=== PATIENT | male | born 1985 | race Caucasian/White ===

== ENCOUNTER 2021-12-28 19:23 | Emergency (ER) | payer OTHER ==
[~2021-12-28] VITALS: Ht 182.9 cm; Wt 68.0 kg
[~2021-12-28 19:23] MED LIST: NAPROSYN375 MG PO
[2021-12-28 20:05] LABS: ABSOLUTE EOSINOPHILS 0.1 thou/uL (0.0-0.7); ABSOLUTE LYMPHOCYTES 1.2 thou/uL (0.8-5.3); ABSOLUTE MONOCYTES 0.6 thou/uL (0.0-1.2); ABSOLUTE NEUTROPHILS 5.9 thou/uL (1.6-8.1); BASOPHILS 0.5 %; EOSINOPHILS 0.8 %; HEMATOCRIT 42.7 % (42.0-52.0); HEMOGLOBIN 14.6 gm/dL (14.0-18.0); LYMPHOCYTES 15.6 %; MCH 29.4 pg (26.0-34.0); MCHC 34.2 g/dL (28.0-37.0); MONOCYTES 7.4 %; MPV 7.7 fl. (7.2-11.1); NUCLEATED RBCS 0 /100WBC; PLATELET COUNT* 254 thou/uL (150-400); POLYS 75.7 %; RBC 4.97 mil/uL (4.50-6.00); WBC 7.8 thou/uL (4.0-11.0)
[2021-12-28 20:17] LABS: CALCIUM 8.3 mg/dL (8.5-10.1); CREATININE 1.1 mg/dL (0.6-1.3); POTASSIUM 3.8 mmol/L (3.5-5.1)
[2021-12-28 20:28] LABS: ALBUMIN 3.6 g/dL (3.4-5.0); TOTAL BILIRUBIN 0.5 mg/dL (<0.1-1.0); TOTAL PROTEIN 6.5 g/dL (6.4-8.2)
[2021-12-28 21:20] LABS: URINE BILIRUBIN NEGATIVE (Negative); URINE BLOOD NEGATIVE (Negative); URINE CLARITY CLEAR; URINE COLOR YELLOW; URINE GLUCOSE-RANDOM NEGATIVE (Negative); URINE KETONES NEGATIVE (Negative); URINE LEUKOCYTES-REFLEX NEGATIVE (Negative); URINE NITRITE-REFLEX NEGATIVE (Negative); URINE PROTEIN NEGATIVE (Negative); URINE SPECIFIC GRAVITY 1.025 (1.005-1.030); URINE UROBILINOGEN 0.2 E.U./dl (0.2-1.0)
[2021-12-28 21:28] LABS: AMP/METHAMP POSITIVE (Negative); BARBITURATES Negative (Negative); BENZODIAZEPINES POSITIVE (Negative); COCAINE Negative (Negative); METHADONE Negative (Negative); OPIATES Negative (Negative); PCP Negative (Negative); THC Negative (Negative)
[2021-12-28 22:40] VITALS: BP 110/70
--- NOTE | 2021-12-29 11:09 | EKG ---
[place] [address] ELECTROCARDIOGRAM REPORT Name: LE CAMARILLO Eliezer Room: [facility]#: [id number] Admission: 12/28/21 Attend Phys: Discharge: 12/28/21 Date of : 81 Date of Service: 12/28/211938 Report #: [id number] THIS REPORT FOR: //name// [facility] ED Test Date: 2021-12-28 Test Time: 19:39:28 Pat Name: LE CAMARILLO Department: Room: Gender: [employer] Worker: : 1985 Requested By: Jen Méndez Order Number: [id number] MD: Sánchez Tafoya Measurements Intervals [place] Rate: 77 P: 77 CO: 139 QRS: 70 QRSD: 100 T: 63 QT: 380 QTc: 431 Interpretive Statements Sinus rhythm No previous ECG available for comparison Electronically Signed On 12-29-2021 11:08:45 [employer] by Sánchez Tafoya [email or web address] <ELECTRONICALLY SIGNED> By: Sánchez Tafoya MD, [facility] 12/29/21 [id number] 38 Sánchez Tafoya MD, FACC /EPI
== END 2021-12-28 22:40 | disposition home or self-care (01) ==
LOC: M.ERS 19:23
PROVIDERS: Emergency Medicine
DX: S00.81XA Abrasion of other part of head, initial encounter (principal); Z20.822 Contact with and (suspected) exposure to COVID-19; S50.811A Abrasion of right forearm, initial encounter; R55 Syncope and collapse; H53.8 Other visual disturbances; F41.9 Anxiety disorder, unspecified; Z86.73 Personal history of transient ischemic attack (TIA), and cerebral infarction without residual deficits; Z90.49 Acquired absence of other specified parts of digestive tract; W19.XXXA Unspecified fall, initial encounter; Y93.89 Activity, other specified; Y92.89 Other specified places as the place of occurrence of the external cause; Y99.8 Other external cause status